=== PATIENT | female | born 1990 | race African-American/Black ===

== ENCOUNTER 2019-12-28 15:46 | Emergency (ER) | payer OTHER ==
[~2019-12-28] VITALS: Ht 167.6 cm; Wt 52.2 kg
[2019-12-28 15:50] VITALS: BP 126/76
--- NOTE | 2019-12-28 15:50 | NUR ---
ED Nurse Note: Pt brought in by ambulance from boyfriend's house c/o generalized body pain x 2 days. Pt reports using meth 2 days ago. Pt is shaking, complaining of feeling cold. Afebrile. Respirations even and unlabored on room air. Vitals stable as documented. A+Ox4, speaking in complete sentences.
--- NOTE | 2019-12-28 16:40 | NUR ---
ED Nurse Note: spoke with patient's boyfriend in waiting room who said pt had a temp of 103 @ home and was shaking. Pt afebrile here. Pt aware of need for urine sample. Resting in bed. no acute distress noted
--- NOTE | 2019-12-28 16:43 | NUR ---
ED Nurse Note: xray @ bedside
[2019-12-28 16:52] LABS: CALCIUM 9.1 MG/DL (8.5-10.1); CREATININE 1.4 MG/DL (0.55-1.30); POTASSIUM 3.5 MMOL/L (3.5-5.1)
[2019-12-28 16:53] LABS: BASOPHILS % (AUTO) 0.8 % (0.0-2.0); HEMATOCRIT 47.6 % (37.0-47.0); HEMOGLOBIN 15.7 G/DL (12.0-16.0); LYMPHOCYTES % (AUTO) 11.7 % (20.0-45.0); MEAN CORPUSCULAR VOLUME 95 FL (80-99); MONOCYTES % (AUTO) 9.8 % (1.0-10.0); NEUTROPHILS % (AUTO) 77.7 % (45.0-75.0); PLATELET COUNT 240 K/UL (150-450); RED BLOOD COUNT 5.04 M/UL (4.20-5.40); RED CELL DISTRIBUTION WIDTH 13.2 % (11.6-14.8); WHITE BLOOD COUNT 11.8 K/UL (4.8-10.8)
[2019-12-28 16:56] LABS: ALBUMIN 3.2 G/DL (3.4-5.0); ALBUMIN/GLOBULIN RATIO 0.6 (1.0-2.7); BILIRUBIN,TOTAL 0.4 MG/DL (0.2-1.0)
--- NOTE | 2019-12-28 17:13 | NUR ---
ED Nurse Note: urine collected and sent to lab
[2019-12-28 17:42] LABS: APPEARANCE,URINE CLEAR; BILIRUBIN, URINE NEGATIVE (NEGATIVE); COLOR,URINE PALE YELLOW; GLUCOSE, URINE (UA) NEGATIVE (NEGATIVE); KETONES,URINE NEGATIVE (NEGATIVE); LEUKOCYTE ESTERASE ,URINE 2+ (NEGATIVE); NITRITE,URINE NEGATIVE (NEGATIVE); PH,URINE 6 (4.5-8.0); PROTEIN,URINE 3+ (NEGATIVE); UROBILINOGEN,URINE NORMAL MG/DL (0.0-1.0)
--- NOTE | 2019-12-28 17:51 | Emergency Room Report ---
History of Present Illness General Chief Complaint: Pain Source: Patient, EMS Present Illness HPI 29-year-old female with no no signal past medical history brought in by paramedics due to generalized body ache, fever, diarrhea, urinary frequency and urgency x2 days also reported symptoms started after she used methamphetamine. Has not taken medication for symptom relief. Upon arrival temperature is within normal limits however he gradually went up to 103 F. Denies chest pain shortness of breath. Denies cough and congestion. Has not taken medication for symptom relief. Denies . Allergies: Coded Allergies: No Known Allergies (Unverified , 12/28/19) COVID-19 Screening Contact w/high risk pt: No Experienced COVID-19 symptoms?: No COVID-19 Testing performed PREFITTER DOORS: No Patient History Past Medical History: see triage record Past Surgical History: none Pertinent Family History: none Now: No Immunizations: UTD Reviewed Nursing Documentation: PMH: Agreed; PSxH: Agreed Nursing Documentation-PMH Past Medical History: No Stated History Review of Systems All Other Systems: negative except mentioned in HPI Physical Exam Vital Signs Date Time Temp Pulse Resp B/P (MAP) Pulse Ox O2 Delivery O2 Flow Rate FiO2 12/28/19 15:49 98.4 115 20 115/72 (86) 98 Room Air Sp02 EP Interpretation: abnormal - elevated temp General Appearance: no apparent distress, alert, GCS 15, non-toxic Head: normocephalic, atraumatic Eyes: bilateral eye normal inspection, bilateral eye PERRL ENT: hearing grossly normal, normal pharynx, no angioedema, normal voice Neck: full range of motion, supple/symm/no masses Respiratory: chest non-tender, lungs clear, normal breath sounds, speaking full sentences Cardiovascular #1: regular rate, rhythm, no edema Cardiovascular #2: 2+ carotid (R), 2+ carotid (L), 2+ radial (R), 2+ radial (L), 2+ dorsalis pedis (R), 2+ dorsalis pedis (L) Gastrointestinal: normal bowel sounds, non tender, soft, non-distended, no guarding, no rebound Musculoskeletal: back normal Neurologic: alert, motor strength/tone normal, oriented x3, sensory intact, responsive, speech normal Psychiatric: judgement/insight normal, memory normal, mood/affect normal, no suicidal/homicidal ideation Skin: no rash Lymphatic: no adenopathy Medical Decision Making PA Attestation All diagnoses and treatment plans were reviewed and discussed with my supervising physician Dr. Rodriguez Diagnostic Impression: Primary Impression: Cocaine abuse Additional Impression: UTI (urinary tract infection) ER Course 29-year-old female with no no signal past medical history brought in by paramedics due to generalized body ache, fever, diarrhea, urinary frequency and urgency x2 days also reported symptoms started after she used methamphetamine. Has not taken medication for symptom relief. Upon arrival temperature is within normal limits however he gradually went up to 103 F. Denies chest pain shortness of breath. Denies cough and congestion. Has not taken medication for symptom relief. Denies . Ddx considered but are not limited to: Coronavirus, bronchitis, influenza, UTI, pyelonephritis, Vital signs: are WNL, pt. is afebrile H&PE are most consistent with: Cocaine abuse, UTI,fever ORDERS: UA, urine cx, urine test, CBC, CMP, tox screen, Covid swab negative, Keflex ED INTERVENTIONS: NS bolus, Tylenol DISCHARGE: At this time pt. is stable for d/c to home. Will provide printed pat ient care instructions, and any necessary prescriptions. Care plan and follow up instructions have been discussed with the patient prior to discharge. Advised patient to follow primary care provider, increase oral hydration, if worsening symptoms return to the emergency room Last Vital Signs Date Time Temp Pulse Resp B/P (MAP) Pulse Ox O2 Delivery O2 Flow Rate FiO2 12/28/19 15:50 98.2 78 20 126/76 97 Room Air Disposition: HOME, SELF-CARE Condition: Stable Scripts Nitrofurantoin Monohyd/M-Cryst* (MACROBID 100 MG*) 100 Mg Capsule 100 MG ORAL EVERY 12 HOURS for 7 Days, #14 CAP Prov: Zane Ascencio 12/28/19 Patient Instructions: Stimulant Use Disorder-Cocaine, Urinary Tract Infection, [id number] Additional Instructions: Take medication as directed, follow with your primary care provider, avoid using cocaine, if worsening symptom return to the emergency room Zane Ascencio Dec 28, 2019 17:51
[2019-12-28] MEDS ORDERED: NITROFURANTOIN100 M2 ORAL (17:52)
--- NOTE | 2019-12-28 18:15 | NUR ---
ED Nurse Note: Pt has 103.3 temp and feels hot to touch. ED PA made aware.
[2019-12-28 18:20] VITALS: BP 129/74
--- NOTE | 2019-12-28 18:20 | NUR ---
ER DISCHARGE NOTE: Patient is cleared to be discharged per ERMD, pt is aox4, on room air, with stable vital signs. Per ED PA, okay to discharge pt with 103 temp. pt given tylenol. pt was given dc and prescription instructions, pt was able to verbalize understanding, pt id band and iv site removed without complications. pt is able to ambulate with steady gait. pt took all belongings.
--- NOTE | 2019-12-28 20:28 | Diagnostic Imaging Report ---
Indication: Shortness of breath Technique: One view of the chest Comparison: none Findings: Lungs and pleural spaces are clear. Heart size is normal. Impression: No acute process
== END 2019-12-28 18:20 | disposition home or self-care (01) ==
LOC: EDBD 15:46 → EMR 16:20
DX: F14.10 Cocaine abuse, uncomplicated (principal); N39.0 Urinary tract infection, site not specified
CPT/HCPCS: 36415; 71045; 80053; 80307; 81003; 81025; 85025; 87086; 87181; 96360; J7030; U0002; Z7502; 99284